=== PATIENT | male | born 1990 | race African-American/Black ===

== ENCOUNTER 2023-11-06 23:43 | Emergency (ER) | payer OTHER ==
[2023-11-06 23:53] VITALS: BP 103/62; PULSE 74; RESP 18; TEMP 97.9; BMI 21.9
[2023-11-07] MEDS ORDERED: BACITRACIN ZINC 15 GM TUBE TOPICAL OINTMENT ONE (01:37)
== END 2023-11-07 02:02 | disposition home or self-care (01) ==
LOC: JER 23:43
DX: S11.81XA Laceration without foreign body of other specified part of neck, initial encounter (principal); X99.1XXA Assault by knife, initial encounter; Y93.01 Activity, walking, marching and hiking
CPT/HCPCS: 99283-25